=== PATIENT | female | born 1940 | race Caucasian/White ===

== ENCOUNTER → 2017-02-06 | Outpatient (CLI) | payer MEDICARE ==
[~2017-02-06] MED LIST: ACET-2650 PO; CALC-146 PO; GLUC-144 PO; MULT-618 PO; NAPR220T66 PO; OMEG-131 PO; OMEG-160 PO; OXYC-197 PO; PROP40TA5 PO; SIMV20TA3 PO; SPIR25TA3 PO
--- NOTE | 2017-02-07 09:04 | Diagnostic Imaging Report ---
Bilateral screening mammogram 2D views with tomosynthesis. The current study was also evaluated with a Computer Aided Detection (CAD) system. INDICATION: Screening. No current complaints stated on the questionnaire. COMPARISON: 01/24/2016. FINDINGS: The breasts are composed of heterogenously dense parenchyma which may decrease mammographic sensitivity. There are minimally increased calcifications and asymmetry in the central slightly medial and slightly inferior aspect of the left breast. The right breast demonstrates no significant change. IMPRESSION: Compression magnification views for area of increased calcifications and density in the central slightly medial inferior aspect of the left breast is recommended. ACR BI-RADS Category 0: Incomplete. (Needs additional imaging evaluation). Result letter will be mailed to the patient. Note: At least 10% of breast cancer is not imaged by mammography. Dictated by: Dictated on workstation # [id number]
== END ==
LOC: RAD 09:28
PROVIDERS: ATTEND Obstetrics & Gynecology
DX: Z12.31 Encounter for screening mammogram for malignant neoplasm of breast (principal); R92.1 Mammographic calcification found on diagnostic imaging of breast
CPT/HCPCS: 77067

== ENCOUNTER → 2017-02-06 | Outpatient (CLI) | payer MEDICARE ==
--- NOTE | 2017-02-06 22:07 | Diagnostic Imaging Report ---
EXAMINATION: DEXA scan. INDICATION: Osteopenia. TECHNIQUE: Bone mineral density estimated based on dual energy radiography over the lumbar spine and femoral necks, was performed. FINDINGS: The lumbar spine T-score is 0.4. This is similar to the density measurements from 2013. Right hip bone T-score is -0.6, left T-score is -0.5 . This is 2.9% decreased density measurements compared to 01/06/2014. IMPRESSION: Bone density measurements are within normal limits. Dictated by: Dictated on workstation # [id number]
== END ==
LOC: RAD 09:32
PROVIDERS: ATTEND Obstetrics & Gynecology
DX: Z13.820 Encounter for screening for osteoporosis (principal); E28.39 Other primary ovarian failure
CPT/HCPCS: 77080

== ENCOUNTER → 2017-02-20 | Outpatient (CLI) | payer MEDICARE ==
--- NOTE | 2017-02-20 09:23 | Diagnostic Imaging Report ---
Left breast diagnostic mammogram with tomography evaluation. CAD is utilized. INDICATION: Increased calcifications in the medial aspect of the left breast. FINDINGS: Compression magnification views in the CC and lateral projection. The calcifications are loosely clustered and demonstrate no significant heterogeneity. No definite underlying mass. IMPRESSION: Loosely clustered calcifications with minimal heterogeneity in the medial central aspect of the left breast are favored to be benign. Ultrasound evaluation pending. ACR BI-RADS Category 0: Incomplete. (Needs additional imaging evaluation). Result letter will be mailed to the patient. Note: At least 10% of breast cancer is not imaged by mammography. 0. Dictated by: Dictated on workstation # [id number]
--- NOTE | 2017-02-20 21:54 | Diagnostic Imaging Report ---
EXAMINATION: Left breast ultrasound. INDICATION: Left breast calcifications appear slightly more prominent compared to the prior study on recent screening. FINDINGS: The four quadrants and retroareolar region of the right breast demonstrate no significant abnormality. IMPRESSION: Negative study. Six month followup left breast mammogram is recommended to ensure stability of the central calcifications. ACR BI-RADS Category 2: Benign findings. Result letter will be mailed to the patient. Note: At least 10% of breast cancer is not imaged by mammography. Dictated by: Dictated on workstation # [id number]
== END ==
LOC: RAD 08:42
PROVIDERS: ATTEND Obstetrics & Gynecology
DX: R92.1 Mammographic calcification found on diagnostic imaging of breast (principal)
CPT/HCPCS: 76641

== ENCOUNTER → 2018-02-09 | Outpatient (CLI) | payer MEDICARE ==
[~2018-02-09] MED LIST changes: -OXYC-197 PO; +OXYC1TAB87 PO; -SPIR25TA3 PO; +SPIR25TA5 PO
--- NOTE | 2018-02-10 10:52 | Diagnostic Imaging Report ---
Digital mammogram. Bilateral screening with 3-D tomosynthesis. This study was compared to the prior exams of 02/06/2017, 01/16/2016 and 01/13/2015. At this time there are no current complaints. FINDINGS: The fibroglandular tissue in both breasts is heterogeneously dense. This does limit the sensitivity of this exam. Overall, there does not appear to have been any significant change when compared to the prior study. No primary or secondary sign of malignancy is noted. IMPRESSION: There is no radiographic evidence for malignancy. ACR BI-RADS Category 1: Negative. Result letter will be mailed to the patient. Note: At least 10% of breast cancer is not imaged by mammography. Dictated by: Dictated on workstation # [id number]
== END ==
LOC: RAD 14:27
PROVIDERS: ATTEND Obstetrics & Gynecology
DX: Z12.31 Encounter for screening mammogram for malignant neoplasm of breast (principal)
CPT/HCPCS: 77067

== ENCOUNTER → 2019-04-12 | Outpatient (CLI) | payer MEDICARE ==
[~2019-04-12] MED LIST changes: +SIMV20TA26 PO; -SIMV20TA3 PO
--- NOTE | 2019-04-12 08:55 | Diagnostic Imaging Report ---
INDICATION: Routine screening. COMPARISON: 02/09/2018 and 02/06/2017. TECHNIQUE: 2D and 3D bilateral screening mammography was performed with CAD. FINDINGS: Both breasts are heterogeneously dense, limiting the sensitivity of mammography. Scattered benign calcifications are identified bilaterally. Tiny circumscribed densities in the retroareolar right breast are stable and consistent with benign etiologies. No spiculated mass or malignant appearing microcalcifications are seen. The axillae are unremarkable. IMPRESSION: No mammographic features suspicious for malignancy are identified. ACR BI-RADS Category 2: Benign findings. Result letter will be mailed to the patient. Note: At least 10% of breast cancer is not imaged by mammography. Dictated by: Dictated on workstation # [id number]
== END ==
LOC: RAD 07:02
PROVIDERS: ATTEND Obstetrics & Gynecology
DX: Z12.31 Encounter for screening mammogram for malignant neoplasm of breast (principal)
CPT/HCPCS: 77067

== ENCOUNTER → 2019-09-14 | Outpatient (CLI) | payer MEDICARE ==
--- NOTE | 2019-09-14 13:57 | Diagnostic Imaging Report ---
INDICATION: Postmenopausal female COMPARISON: 02/06/2017 FINDINGS: AP Spine L1-L4: [BMD (g/cm2): 1.276] [T-Score: 0.6] [Z-Score: 2.9] [BMD Previous: 1.250] [BMD % Change: 2.1] LT Hip Neck: [BMD (g/cm2): 0.752] [T-Score: -2.1] [Z-Score: 0.4] LT Hip Total: [BMD (g/cm2):0.916] [T-Score:-0.7] [Z-Score: 1.6] [BMD Previous: 0.937] [BMD % Change: -2.2] RT Hip Neck: [BMD (g/cm2):0.881] [T-Score:-1.1] [Z-Score:1.3] RT Hip Total: [BMD (g/cm2):0.923] [T-score:-0.7] [Z-Score:1.7] [BMD Previous:0.947] [BMD % Change:-2.5] *Indicates significant change from prior examination based on 95% confidence level. World Health Organization criteria for BMD interpretation classify patients as Normal (T-score at or above -1.0), Osteopenic (T-score between -1.0 and -2.5) or Osteoporotic (T-score at or below -2.5). LIMITATIONS AND MODIFICATION: None. FRACTURE RISK (FRAX SCORE): The ten year probability of (%): Major Osteoporotic Fracture: [14] Hip Fracture: [4.5] IMPRESSION: 1. Osteopenia (Low bone mass). 2. No statistically significant change in bone mineral density since prior examination. 3. See below National Osteoporosis Foundation guidelines on when to potentially initiate pharmacologic therapy. Based on the National Osteoporosis Foundation Guidelines, pharmacologic treatment should be initiated in any of the following, unless clinical conditions suggest otherwise: * Any patient with prior fragility fracture of the hip or vertebrae. A spine fracture indicates 5X risk for subsequent spine fracture and 2X risk for subsequent hip fracture. * Osteoporosis (T-score <-2.5). * Postmenopausal women and men age 50 and older with low bone mass/osteopenia (T-score between -1.0 and -2.5) by DXA and 10-year major osteoporotic fracture greater than 20% or a 10-year probability of hip fracture greater than 3%. These fracture risks are supplied above in the FRAX score, if applicable. * Clinician judgement and/or patient preferences may indicate treatment for people with 10-year fracture probabilities above or below these levels. Dictated by: Dictated on workstation # [id number]
== END ==
LOC: RAD 10:30
PROVIDERS: ATTEND Obstetrics & Gynecology
DX: Z13.820 Encounter for screening for osteoporosis (principal); M85.80 Other specified disorders of bone density and structure, unspecified site; Z78.0 Asymptomatic menopausal state
CPT/HCPCS: 77080

== ENCOUNTER → 2020-06-26 | Outpatient (CLI) | payer MEDICARE ==
--- NOTE | 2020-06-26 16:09 | Diagnostic Imaging Report ---
INDICATION: Routine screening. COMPARISON: 04/12/2019 and 02/09/2018. TECHNIQUE: 2D and 3D bilateral screening mammography was performed with CAD. FINDINGS: Both breasts are heterogeneously dense, limiting the sensitivity of mammography. Benign calcifications are noted bilaterally. Benign nodules in the right breast appear stable. No new mass or malignant appearing microcalcifications are seen. The axillae are unremarkable. IMPRESSION: No mammographic features suspicious for malignancy are identified. ACR BI-RADS Category 2: Benign findings. Result letter will be mailed to the patient. Note: At least 10% of breast cancer is not imaged by mammography. Dictated by: Dictated on workstation # [id number]
== END ==
LOC: CARD 10:19
PROVIDERS: ATTEND Internal Medicine
DX: Z12.31 Encounter for screening mammogram for malignant neoplasm of breast (principal); I49.9 Cardiac arrhythmia, unspecified
CPT/HCPCS: 77063; 77067; 93005

== ENCOUNTER → 2021-06-28 | Outpatient (CLI) | payer MEDICARE ==
--- NOTE | 2021-06-28 13:56 | Diagnostic Imaging Report ---
INDICATION: Routine screening. COMPARISON: 06/26/2020 and 04/12/2019. TECHNIQUE: 2D and 3D bilateral screening mammography was performed with CAD. FINDINGS: Both breasts are heterogeneously dense, limiting the sensitivity of mammography. There are scattered benign calcifications throughout both breasts. No mass or malignant-appearing microcalcifications are seen. The axillae are unremarkable. IMPRESSION: No mammographic features suspicious for malignancy are identified. ACR BI-RADS Category 2: Benign findings. Result letter will be mailed to the patient. Note: At least 10% of breast cancer is not imaged by mammography. Dictated by: Dictated on workstation # [id number]
== END ==
LOC: RAD 10:17
PROVIDERS: ATTEND Internal Medicine
DX: Z12.31 Encounter for screening mammogram for malignant neoplasm of breast (principal)
CPT/HCPCS: 77063; 77067

== ENCOUNTER → 2022-08-06 | Outpatient (CLI) | payer MEDICARE ==
--- NOTE | 2022-08-06 09:27 | Diagnostic Imaging Report ---
INDICATION: Postmenopausal screening COMPARISON: 09/14/2019 FINDINGS: AP Spine L1-L4: [BMD (g/cm2): 1.217] [T-Score: 0.1] [Z-Score: 1.5] [BMD Previous: 1.276] [BMD % Change: -4.6*] LT Hip Neck: [BMD (g/cm2): 0.823] [T-Score: -1.5] [Z-Score: 0.4] LT Hip Total: [BMD (g/cm2):0.963] [T-Score:-0.4] [Z-Score: 1.4] [BMD Previous: 0.916] [BMD % Change: 5.1*] RT Hip Neck: [BMD (g/cm2):0.893] [T-Score:-1.0] [Z-Score:0.9] RT Hip Total: [BMD (g/cm2):0.953] [T-score:-0.4] [Z-Score:1.3] [BMD Previous:0.923] [BMD % Change:3.3] *Indicates significant change from prior examination based on 95% confidence level. World Health Organization criteria for BMD interpretation classify patients as Normal (T-score at or above -1.0), Osteopenic (T-score between -1.0 and -2.5) or Osteoporotic (T-score at or below -2.5). LIMITATIONS AND MODIFICATION: None. FRACTURE RISK (FRAX SCORE): The ten year probability of (%): Major Osteoporotic Fracture: [13.2] Hip Fracture: [3.5] IMPRESSION: 1. Normal bone mineral density. 2. See below National Osteoporosis Foundation guidelines on when to potentially initiate pharmacologic therapy. Based on the National Osteoporosis Foundation Guidelines, pharmacologic treatment should be initiated in any of the following, unless clinical conditions suggest otherwise: * Any patient with prior fragility fracture of the hip or vertebrae. A spine fracture indicates 5X risk for subsequent spine fracture and 2X risk for subsequent hip fracture. * Osteoporosis (T-score <-2.5). * Postmenopausal women and men age 50 and older with low bone mass/osteopenia (T-score between -1.0 and -2.5) by DXA and 10-year major osteoporotic fracture greater than 20% or a 10-year probability of hip fracture greater than 3%. These fracture risks are supplied above in the FRAX score, if applicable. * Clinician judgement and/or patient preferences may indicate treatment for people with 10-year fracture probabilities above or below these levels. Dictated by: Dictated on workstation # [id number]
--- NOTE | 2022-08-06 13:35 | Diagnostic Imaging Report ---
INDICATION: Routine screening. COMPARISON: 06/28/2021 and 06/26/2020. TECHNIQUE: 2D and 3D bilateral screening mammography was performed with CAD. FINDINGS: Both breasts are heterogeneously dense, limiting the sensitivity of mammography. The parenchymal pattern is stable. No mass or malignant-appearing microcalcifications are seen. There are benign calcifications bilaterally. The axillae are unremarkable. IMPRESSION: No mammographic features suspicious for malignancy are identified. ACR BI-RADS Category 2: Benign findings. Result letter will be mailed to the patient. Note: At least 10% of breast cancer is not imaged by mammography. Dictated by: Dictated on workstation # [id number]
== END ==
LOC: RAD 08:37
PROVIDERS: ATTEND Internal Medicine
DX: Z12.31 Encounter for screening mammogram for malignant neoplasm of breast (principal); Z78.0 Asymptomatic menopausal state
CPT/HCPCS: 77063; 77067; 77080